=== PATIENT | female | born 1990 | race Caucasian/White ===

== ENCOUNTER 2017-08-08 00:15 | Inpatient (IN) | payer BC ==
[~2017-08-08] VITALS: Ht 162.6 cm; Wt 71.7 kg
[2017-08-08 00:32] VITALS: BP 144/91
[2017-08-08 00:57] LABS: APPEARANCE,URINE Clear (CLEAR); BILIRUBIN,URINE Negative (NEGATIVE); COLOR,URINE Yellow (YELLOW); GLUCOSE, URINE (UA) Negative (NEGATIVE); KETONES,URINE Negative (NEGATIVE); LEUKOCYTE ESTERASE ,URINE Trace (NEGATIVE); NITRATE,URINE Negative (NEGATIVE); OCCULT BLOOD,URINE Negative (NEGATIVE); PH,URINE 7.5 (5.0-8.0); PROTEIN,URINE Negative (NEGATIVE)
[2017-08-08] MEDS ORDERED: LACTATED RINGERS 1000ML 1,000 ML IV PRN (01:37)
[2017-08-08 01:41] LABS: BACTERIA,URINE Few /HPF (None Seen); RBC,URINE 0-1 /HPF (0-1); SQUAMOUS EPITHELIAL CELL,UR Moderate /HPF (0-2)
[2017-08-08] MEDS ORDERED: MEPERIDINE-PF 50 MG/ML SYG IVP PRN ×2 (01:45→11:45)
[2017-08-08] MEDS ORDERED: EPHEDRINE SULFATE 50 MG/ML AMPULE IVP PRN (01:45)
[2017-08-08] MEDS ORDERED: LACTATED RINGERS 500 ML 500 ML IV PRN (01:45)
[2017-08-08] MEDS ORDERED: PROMETHAZINE HCL 25 MG/ML 1ML AMPULE IM PRN ×2 (01:45→11:45)
[2017-08-08] MEDS ORDERED: NALOXONE HCL 0.4 MG/1 ML ML IV PRN (01:45)
[2017-08-08] MEDS ORDERED: ROPIVACAINE 0.2%200ML EPIDURAL 200 ML EP PRN (01:45)
[2017-08-08 02:05] LABS: HEMATOCRIT 34.6 % (36-48); MEAN CORPUSCULAR HEMOGLOBIN 31.2 pg (27.0-33.0); MEAN CORPUSCULAR HGB CONC 34.7 g/dL (32.0-36.0); MEAN CORPUSCULAR VOLUME 89.9 fL (79-99); PLATELET COUNT (AUTO) 197 K/uL (130-400); RED BLOOD CELL COUNT(AUTO) 3.85 MIL/uL (4.00-5.50); RED CELL DISTRIBUTION WIDTH 12.9 % (11.0-15.5); WHITE BLOOD COUNT (AUTO) 10.2 K/uL (4.8-10.8)
[2017-08-08] MEDS ORDERED: OXYTOCIN 10 USP UNITS/ML 20 UNIT in LACTATED RINGERS 1000ML 1,000 ML IV SCH (07:15)
[2017-08-08] MEDS ORDERED: OXYTOCIN 10 USP UNITS/ML ONE ×2 (08:10→18:01)
[2017-08-08] MEDS ORDERED: ACETAMINOPHEN-CODEINE 300/30MG TAB PO PRN (18:15)
[2017-08-08] MEDS ORDERED: HYDROCODONE/ACETAMINOPHEN 5/325 MG TAB PO PRN (18:15)
[2017-08-08] MEDS ORDERED: MEASLES/MUMPS/RUBELLA VACCINE, LIVE 0.5 ML/VIAL SQ PRN (18:15)
[2017-08-08] MEDS ORDERED: WITCH HAZEL 1 PAD TP PRN (18:15)
[2017-08-08] MEDS ORDERED: DIPH,PERTUSS(ACELL),TET VAC/PF 0.5 ML VIAL IM PRN (18:15)
[2017-08-08] MEDS ORDERED: BENZOCAINE/LANOLIN/ALOE VERA 60 ML AEROSOL TP PRN (18:15)
[2017-08-08] MEDS ORDERED: LANOLIN 30GM OINTMENT TP PRN (18:15)
[2017-08-08] MEDS ORDERED: ACETAMINOPHEN 325 MG TAB PO PRN (18:15)
[2017-08-08 19:49] VITALS: BP 127/78
[2017-08-08] MEDS: DOCUSATE SODIUM 100 MG CAP PO SCH (21:12)
[2017-08-08] MEDS: IBUPROFEN 800 MG TAB PO PRN (21:12)
[2017-08-09 00:09] VITALS: BP 113/66
[2017-08-09 04:50] VITALS: BP 109/72
[2017-08-09 05:49] LABS: HEMATOCRIT 33.1 % (36-48); MEAN CORPUSCULAR HEMOGLOBIN 31.5 pg (27.0-33.0); MEAN CORPUSCULAR HGB CONC 35.4 g/dL (32.0-36.0); PLATELET COUNT (AUTO) 183 K/uL (130-400); RED BLOOD CELL COUNT(AUTO) 3.72 MIL/uL (4.00-5.50); RED CELL DISTRIBUTION WIDTH 13.3 % (11.0-15.5); WHITE BLOOD COUNT (AUTO) 14.9 K/uL (4.8-10.8)
[2017-08-09 07:21] VITALS: BP 119/69
[2017-08-09] MEDS: DOCUSATE SODIUM 100 MG CAP PO SCH (08:43)
[2017-08-09] MEDS: IBUPROFEN 800 MG TAB PO PRN ×2 (08:43→15:32)
[2017-08-09 09:19] LABS: HEPATITIS Bs ANTIGEN SCREEN P Negative (Negative)
[2017-08-09 11:48] VITALS: BP 118/77
[2017-08-09 15:42] VITALS: BP 107/69
== END 2017-08-09 18:25 | disposition home or self-care (01) | DRG 775 ==
LOC: EDH 00:15 → LDH 00:16 → OBSVTOIN 00:16 → WSH 19:45
PROVIDERS: ADMIT Obstetrics & Gynecology; ATTEND Obstetrics & Gynecology
PROC: 0HQ9XZZ Repair Perineum Skin, External Approach (ICD-10-PCS; principal; 2017-08-08)
PROC: 10E0XZZ Delivery of Products of Conception, External Approach (ICD-10-PCS; 2017-08-08)
PROC: 3E0R3BZ Introduction of Anesthetic Agent into Spinal Canal, Percutaneous Approach (ICD-10-PCS; 2017-08-08)
PROC: 00HU33Z Insertion of Infusion Device into Spinal Canal, Percutaneous Approach (ICD-10-PCS; 2017-08-08)
PROC: 10907ZC Drainage of Amniotic Fluid, Therapeutic from Products of Conception, Via Natural or Artificial Opening (ICD-10-PCS; 2017-08-08)
PROC: 3E0234Z Introduction of Serum, Toxoid and Vaccine into Muscle, Percutaneous Approach (ICD-10-PCS; 2017-08-08)
PROC: 3E0134Z Introduction of Serum, Toxoid and Vaccine into Subcutaneous Tissue, Percutaneous Approach (ICD-10-PCS; 2017-08-08)
DX: O69.81X0 Labor and delivery complicated by cord around neck, without compression, not applicable or unspecified (principal); O70.0 First degree perineal laceration during delivery; Z37.0 Single live birth; Z3A.39 39 weeks gestation of pregnancy; Z88.1 Allergy status to other antibiotic agents; Z23 Encounter for immunization
CPT/HCPCS: 36415; 81001; 85027; 86592; 86850; 86900; 86901; 87340; 90715; A4606; J2590; J7120